=== PATIENT | male | born 1995 ===

== ENCOUNTER → 2020-02-01 | Outpatient (CLI) | payer OTHER ==
--- NOTE | 2020-02-27 09:23 | REP ---
RIGHT KNEE SERIES CLINICAL: Nontraumatic knee pain. TECHNIQUE: AP, lateral, bilateral oblique views of the right knee. FINDINGS: The osseous structures and joint spaces are intact and normal. Mild swelling and possible effusion cannot be excluded. IMPRESSION: Possible effusion and swelling. No acute fracture or dislocation. MTDD
== END ==
LOC: M WUC 11:54
PROVIDERS: ATTEND Physician Assistant
DX: S83.411A Sprain of medial collateral ligament of right knee, initial encounter (principal); X58.XXXA Exposure to other specified factors, initial encounter; Y92.89 Other specified places as the place of occurrence of the external cause

== ENCOUNTER → 2020-07-15 | Outpatient (CLI) | payer SELFPAY | LOC: M LABSMTC 14:04 | PROVIDERS: ATTEND Pediatrics | DX: Z20.822 Contact with and (suspected) exposure to COVID-19 (principal) ==